=== PATIENT | male | born 1950 | race Caucasian/White ===

== ENCOUNTER → 2022-12-25 | Outpatient (CLI) | payer OTHER | END | disposition home or self-care (01) | LOC: LAB SHORT 13:44 → PLD 13:44 | DX: M67.442 Ganglion, left hand (principal) | CPT/HCPCS: 88304 ==

== ENCOUNTER 2023-03-01 06:46 | Day surgery (SDC) | payer OTHER ==
[~2023-03-01] VITALS: Ht 182.9 cm; Wt 94.7 kg
[~2023-03-01 06:46] MED LIST: ATOR10 PO; Aspir 8181 MG PO; FISH OIL 1,2001 EAC4 PO; METF500 PO; Prinivil10 MG PO
--- NOTE | 2023-03-01 07:06 | NUR ---
03/01/23 0706 Pattie Mathew AT 0701 PLEDGET AT 0704
[2023-03-01 08:32] VITALS: BP 122/88
== END 2023-03-01 08:50 | disposition home or self-care (01) ==
LOC: ORSCSDS 06:46
PROVIDERS: Ophthalmology
PROC: 08DK3ZZ Extraction of Left Lens, Percutaneous Approach (ICD-10-PCS; principal; 2023-03-01 08:00)
DX: E11.36 Type 2 diabetes mellitus with diabetic cataract (principal); H25.12 Age-related nuclear cataract, left eye; K21.9 Gastro-esophageal reflux disease without esophagitis; E78.5 Hyperlipidemia, unspecified; I10 Essential (primary) hypertension; Z79.84 Long term (current) use of oral hypoglycemic drugs; Z79.899 Other long term (current) drug therapy
CPT/HCPCS: 82947; J2001; J2250; J3010; J3301; J7040; V2632

== ENCOUNTER 2023-03-08 06:46 | Day surgery (SDC) | payer OTHER ==
[~2023-03-08] VITALS: Ht 182.9 cm; Wt 93.5 kg
--- NOTE | 2023-03-08 07:11 | NUR ---
03/08/23 0711 Pattie Mathew AT 0703 PLEDGET AT 0705
[2023-03-08 08:24] VITALS: BP 113/80
== END 2023-03-08 08:36 | disposition home or self-care (01) ==
LOC: ORSCSDS 06:46
PROVIDERS: Ophthalmology
PROC: 08RJ3JZ Replacement of Right Lens with Synthetic Substitute, Percutaneous Approach (ICD-10-PCS; principal; 2023-03-08 08:00)
DX: E11.36 Type 2 diabetes mellitus with diabetic cataract (principal); Z96.1 Presence of intraocular lens; I10 Essential (primary) hypertension; K21.9 Gastro-esophageal reflux disease without esophagitis; Z79.84 Long term (current) use of oral hypoglycemic drugs; Z79.899 Other long term (current) drug therapy
CPT/HCPCS: 82947; J2001; J2250; J3010; J3301; J7040; V2632